=== PATIENT | female | born 1945 | race Caucasian/White ===

== ENCOUNTER 2017-01-21 00:12 | Emergency (ER) | payer MEDICARE, OTHER ==
[2016-01-18 19:17] VITALS: BMI 23.4
[~2017-01-21 00:12] MED LIST: DEXILANT60 MG PO
== END 2017-01-21 01:20 | disposition home or self-care (01) ==
LOC: D.ER 00:12
DX: M54.12 Radiculopathy, cervical region (principal); K21.9 Gastro-esophageal reflux disease without esophagitis; H40.9 Unspecified glaucoma; I44.0 Atrioventricular block, first degree